=== PATIENT | male | born 1980 | race Caucasian/White ===

== ENCOUNTER 2023-06-01 13:55 | Outpatient (CLI) | payer BC, SELFPAY | END 2023-06-01 13:56 | disposition home or self-care (01) | PROVIDERS: PCP Family Medicine; Visit Provider Family Medicine | DX: E78.2 Mixed hyperlipidemia (principal); I10 Essential (primary) hypertension; F10.10 Alcohol abuse, uncomplicated; R25.1 Tremor, unspecified; Z13.6 Encounter for screening for cardiovascular disorders | CPT/HCPCS: 80053; 80061; 84443 ==

== ENCOUNTER 2025-02-25 10:31 | Outpatient (CLI) | payer BC, SELFPAY | END 2025-02-25 10:32 | disposition home or self-care (01) | PROVIDERS: PCP Family Medicine; Visit Provider Family Medicine | DX: E78.2 Mixed hyperlipidemia (principal); I10 Essential (primary) hypertension | CPT/HCPCS: 80048; 80061; 80076; 85025 ==

== ENCOUNTER 2025-05-04 11:28 | Outpatient (CLI) | payer BC, SELFPAY ==
--- NOTE | 2025-05-04 12:49 | P.ANES_ITS ---
Anesthesia Charges Start Date/Time Anesthesia Start Date: 05/04/25 Anesthesia Start Time: 12:20 Stop Date/Time Anesthesia Stop Date: 05/04/25 Anesthesia Stop Time: 12:46 Coding CPT Codes CPT Codes: ANES LWR INTST SCR COLSC - [id number] ([id number]) P3 - PATIENT W/SEVERE SYS DISEASE, QK - AMUSEMENT RIDE OPERATOR 2-4 CNCRNT ANES PROC, QX - BLINDSTITCH HEMMER SVC W/ MD MED DIRECTION
--- NOTE | 2025-05-04 12:49 | W.ANESCHARGE ---
Anesthesia Charges Start Date/Time Anesthesia Start Date: 05/04/25 Anesthesia Start Time: 12:20 Stop Date/Time Anesthesia Stop Date: 05/04/25 Anesthesia Stop Time: 12:46 Coding CPT Codes CPT Codes: ANES LWR INTST SCR COLSC - 84649 ([id number]) P3 - PATIENT W/SEVERE SYS DISEASE, QK - AUTOGLAZIER 2-4 CNCRNT ANES PROC, QX - TRACK WATCHMAN SVC W/ MD MED DIRECTION
--- NOTE | 2025-05-04 13:34 | P.ANES_ITS ---
Anesthesia Charges Start Date/Time Anesthesia Start Date: 05/04/25 Anesthesia Start Time: 12:20 Stop Date/Time Anesthesia Stop Date: 05/04/25 Anesthesia Stop Time: 12:46 Coding CPT Codes CPT Codes: ANES LWR INTST SCR COLSC - [id number] ([id number]) QX - SCHOOL HEALTH ASSISTANT SVC W/ MD MED DIRECTION, QK - GRINDING ROOM SUPERVISOR 2-4 CNCRNT ANES PROC, P3 - PATIENT W/SEVERE SYS DISEASE
--- NOTE | 2025-05-04 13:34 | W.ANESCHARGE ---
Anesthesia Charges Start Date/Time Anesthesia Start Date: 05/04/25 Anesthesia Start Time: 12:20 Stop Date/Time Anesthesia Stop Date: 05/04/25 Anesthesia Stop Time: 12:46 Coding CPT Codes CPT Codes: ANES LWR INTST SCR COLSC - [id number] ([id number]) QX - LANDSCAPE SUPERVISOR SVC W/ MD MED DIRECTION, QK - AUCTIONEER AUTOMOBILE 2-4 CNCRNT ANES PROC, P3 - PATIENT W/SEVERE SYS DISEASE
== END 2025-05-04 11:29 | disposition home or self-care (01) ==
LOC: OP CLINIC 11:28
PROVIDERS: PCP Family Medicine; Visit Provider Surgery
DX: Z12.11 Encounter for screening for malignant neoplasm of colon (principal); R19.5 Other fecal abnormalities; D12.0 Benign neoplasm of cecum
CPT/HCPCS: 00812; 45385; 88305; J2704